=== PATIENT | female | born 1945 | race Caucasian/White ===

== ENCOUNTER 2016-11-24 17:31 | Inpatient (IN) | payer MEDICARE ==
[2016-11-24] MEDS ORDERED: Meclizine TAB* 12.5 MG PO ONE (18:51)
[2016-11-24] MEDS ORDERED: Ondansetron INJ* 2 MG/ML VIAL IV ONE ×2 (18:51→20:53)
[2016-11-24] MEDS ORDERED: NS 0.9% 1000 ML* 1,000 ML IV ONE (18:51)
[2016-11-24 19:01] LABS: Hematocrit 40 % (35-47); Hemoglobin 13.4 g/dl (12.0-16.0); Mean Corpuscular HGB Conc 34 g/dl (31-36); Mean Corpuscular Hemoglobin 31 pg (27-31); Mean Corpuscular Volume 92 fL (80-97); Mean Platelet Volume 7 um3 (7.4-10.4); Red Blood Count 4.34 10^6/ul (4.0-5.4); Red Cell Distribution Width 14 % (10.5-15); White Blood Count 8.1 10^3/ul (3.5-10.8)
[2016-11-24 19:12] LABS: Albumin 3.8 g/dL (3.2-5.2); BUN/Creatinine Ratio 19.7 (8-20); C Reactive Protein 3.99 mg/L (< 5.00); Calcium 9.1 mg/dL (8.6-10.3); EGFR African American 113.9 (>60); EGFR Non-African American 88.5 (>60); Globulin 3.2 g/dL (2-4); Potassium 3.9 mmol/L (3.5-5.0); Total Bilirubin 0.4 mg/dL (0.2-1.0)
[2016-11-24 19:17] LABS: Urine Bacteria Absent (Absent); Urine Bilirubin Negative (Negative); Urine Glucose Negative (Negative); Urine Nitrite Negative (Negative)
[2016-11-24 19:22] LABS: TSH (Thyroid Stimulating Horm) 3.06 mcIU/mL (0.34-5.60)
--- NOTE | 2016-11-24 20:13 | RAD ---
INDICATION: Dizziness and weakness COMPARISON: None. TECHNIQUE: Contiguous axial sections of the brain were obtained from the skull base to the vertex without contrast. FINDINGS: The ventricles, cisterns and sulci exhibit mild symmetric involutional changes. There is mild periventricular and subcortical white matter hypoattenuation compatible with chronic microvascular disease. At the left cerebellum there is a 4 cm low-density lesion. There is no evidence for intracranial hemorrhage. There is mass effect on the fourth ventricle as well as a small amount of cerebellar tonsillar herniation 6 mm below the level of the foramen magnum (sagittal image 17 of 30). No significant focal osseous abnormality is present. The visualized portion of the paranasal sinuses and mastoid air cells appear clear. IMPRESSION: 1. In the left cerebellum there is a 4 cm low-density mass exerting mass effect on the fourth ventricle and causing a small degree of cerebellar tonsil herniation below the level of the foramen magnum. Further characterization with MRI with and without contrast is advised. 2. Additional age-appropriate and chronic findings as described in the body of the report.
[2016-11-24] MEDS ORDERED: HYDROmorphone* 1 MG/ML 1 ML SYR IV ONE (20:53)
--- NOTE | 2016-11-24 21:14 | ED ---
Chaim Chaudhari Janilya, scribed for Bhupendra Smith MD on 11/24/16 at 1847 . Complex/Multi-Sys Presentation - HPI Summary HPI Summary: A 71 y/o female came in to [facility] presenting w/ a gradual onset of constant weakness and dizziness that started Wednesday, November 23, 2016 at approximately noon. Pt states she has "vertigo even at rest". Pt states due to the severity of the weakness in both lower extremities, pt cannot walk. There is also weakness in both upper extremities as well as tingling sensations in all extremities. Pt states she also has nausea and a sharp WREN localized diffusely. Pt states she has baseline visual anomalies. Pt denies vomiting. - History Of Current Complaint Chief Complaint: EDDizziness Time Seen by Provider: 11/24/16 18:11 Hx Obtained From: Patient Onset/Duration: Gradual Onset, Lasting Days, Still Present Timing: Constant Severity Currently: Moderate Severity Initially: Moderate Character: Sharp - Allergies/Home Medications Allergies/Adverse Reactions: Allergies Allergy/AdvReac Type Severity Reaction Status Date / Time No Known Allergies Allergy Verified 09/28/15 08:12 PMH/Surg Hx/FS Hx/Imm Hx Previously Healthy: Yes Endocrine/Hematology History: Denies: Hx Diabetes, Hx Thyroid Disease Cardiovascular History: Denies: Hx Hypertension Respiratory History: Denies: Hx Asthma, Hx Chronic Obstructive Pulmonary Disease (COPD) GI History: Denies: Hx Ulcer Infectious Disease History: No Infectious Disease History: Denies: Hx Hepatitis, Hx Human Immunodeficiency Virus (HIV), Traveled Outside the [place] in Last 30 Days - Family History Known Family History: Positive: None - Social History Alcohol Use: None Substance Use Type: Reports: None Smoking Status (MU): Heavy Every Day Tobacco Smoker Amount Used/How Often: PPD Review of Systems Eyes: Other - baseline visual anomalies Positive: Nausea. Negative: Vomiting Neurological: Other - vertigo Positive: Headache, Weakness, Paresthesia - of all extremities All Other Systems Reviewed And Are Negative: Yes Physical Exam Triage Information Reviewed: Yes Vital Signs On Initial Exam: Initial Vitals Temp Pulse Resp BP Pulse Ox 98.2 F 70 16 119/58 96 11/24/16 17:58 11/24/16 17:58 11/24/16 17:58 11/24/16 17:58 11/24/16 17:58 Vital Signs Reviewed: Yes Appearance: Positive: Well-Appearing, No Pain Distress Skin: Positive: Warm, Skin Color Reflects Adequate Perfusion, Dry Head/Face: Positive: Normal Head/Face Inspection Eyes: Positive: Normal ENT: Positive: Normal ENT inspection Neck: Positive: Supple, Nontender Respiratory/Lung Sounds: Positive: Clear to Auscultation, Breath Sounds Present Cardiovascular: Positive: RRR Abdomen Description: Positive: Nontender, Soft Bowel Sounds: Positive: Present Musculoskeletal: Positive: Normal Neurological: Positive: Other - Bilaterally horizontal nystagmus, fatigues Psychiatric: Positive: Affect/Mood Appropriate - Anaya Coma Scale Coma Scale Total: 15 Diagnostics - Vital Signs Vital Signs Temp Pulse Resp BP Pulse Ox 11/24/16 18:08 16 11/24/16 17:58 98.2 F 70 16 119/58 96 - Laboratory Lab Results: Lab Results 11/24/16 11/24/16 11/24/16 Range/Units 18:15 18:15 18:15 WBC 8.1 (3.5-10.8) 10^3/ul RBC 4.34 (4.0-5.4) 10^6/ul Hgb 13.4 (12.0-16.0) g/dl Hct 40 (35-47) % MCV 92 (80-97) fL MCH 31 (27-31) pg MCHC 34 (31-36) g/dl RDW 14 (10.5-15) % Plt Count 286 (150-450) 10^3/ul MPV 7 L (7.4-10.4) um3 Neut % (Auto) 65.4 (38-83) % Lymph % (Auto) 26.5 (25-47) % [place] % (Auto) 7.1 (1-9) % Eos % (Auto) 0.3 (0-6) % Baso % (Auto) 0.7 (0-2) % Absolute Neuts (auto) 5.3 (1.5-7.7) 10^3/ul Absolute Lymphs (auto) 2.2 (1.0-4.8) 10^3/ul Absolute Monos (auto) 0.6 (0-0.8) 10^3/ul Absolute Eos (auto) 0 (0-0.6) 10^3/ul Absolute Basos (auto) 0.1 (0-0.2) 10^3/ul Absolute Nucleated RBC 0.01 10^3/ul Nucleated RBC % 0.1 INR (Anticoag Therapy) (0.89-1.11) Sodium 125 L (133-145) mmol/L Potassium 3.9 (3.5-5.0) mmol/L Chloride 97 L (101-111) mmol/L Carbon Dioxide 21 L (22-32) mmol/L Anion Gap 7 (2-11) mmol/L BUN 13 (6-24) mg/dL Creatinine 0.66 (0.51-0.95) mg/dL Est GFR ( Amer) 113.9 (>60) Est GFR (Non-Af Amer) 88.5 (>60) BUN/Creatinine Ratio 19.7 (8-20) Glucose 105 H (70-100) mg/dL Lactic Acid 0.9 (0.5-2.0) mmol/L Calcium 9.1 (8.6-10.3) mg/dL Magnesium 2.0 (1.9-2.7) mg/dL Total Bilirubin 0.40 (0.2-1.0) mg/dL AST 14 (13-39) U/L ALT 9 (7-52) U/L Alkaline Phosphatase 66 (34-104) U/L Troponin I 0.00 (<0.04) ng/mL C-Reactive Protein 3.99 (< 5.00) mg/L Total Protein 7.0 (6.4-8.9) g/dL Albumin 3.8 (3.2-5.2) g/dL Globulin 3.2 (2-4) g/dL Albumin/Globulin Ratio 1.2 (1-3) TSH 3.06 (0.34-5.60) mcIU/mL Urine Color Urine Appearance Urine pH (5-9) Ur Specific [place] (1.010-1.030) Urine Protein (Negative) Urine Ketones (Negative) Urine Blood (Negative) Urine Nitrate (Negative) Urine Bilirubin (Negative) Urine Urobilinogen (Negative) Ur Leukocyte Esterase (Negative) Urine WBC (Auto) (Absent) Urine RBC (Auto) (Absent) Ur Squamous Epith Cells (Absent) Urine Bacteria (Absent) Urine Glucose (Negative) 11/24/16 11/24/16 Range/Units 18:15 19:01 WBC (3.5-10.8) 10^3/ul RBC (4.0-5.4) 10^6/ul Hgb (12.0-16.0) g/dl Hct (35-47) % MCV (80-97) fL MCH (27-31) pg MCHC (31-36) g/dl RDW (10.5-15) % Plt Count (150-450) 10^3/ul MPV (7.4-10.4) um3 Neut % (Auto) (38-83) % Lymph % (Auto) (25-47) % [place] % (Auto) (1-9) % Eos % (Auto) (0-6) % Baso % (Auto) (0-2) % Absolute Neuts (auto) (1.5-7.7) 10^3/ul Absolute Lymphs (auto) (1.0-4.8) 10^3/ul Absolute Monos (auto) (0-0.8) 10^3/ul Absolute Eos (auto) (0-0.6) 10^3/ul Absolute Basos (auto) (0-0.2) 10^3/ul Absolute Nucleated RBC 10^3/ul Nucleated RBC % INR (Anticoag Therapy) 1.00 (0.89-1.11) Sodium (133-145) mmol/L Potassium (3.5-5.0) mmol/L Chloride (101-111) mmol/L Carbon Dioxide (22-32) mmol/L Anion Gap (2-11) mmol/L BUN (6-24) mg/dL Creatinine (0.51-0.95) mg/dL Est GFR ( Amer) (>60) Est GFR (Non-Af Amer) (>60) BUN/Creatinine Ratio (8-20) Glucose (70-100) mg/dL Lactic Acid (0.5-2.0) mmol/L Calcium (8.6-10.3) mg/dL Magnesium (1.9-2.7) mg/dL Total Bilirubin (0.2-1.0) mg/dL AST (13-39) U/L ALT (7-52) U/L Alkaline Phosphatase (34-104) U/L Troponin I (<0.04) ng/mL C-Reactive Protein (< 5.00) mg/L Total Protein (6.4-8.9) g/dL Albumin (3.2-5.2) g/dL Globulin (2-4) g/dL Albumin/Globulin Ratio (1-3) TSH (0.34-5.60) mcIU/mL Urine Color Yellow Urine Appearance Cloudy Urine pH 5.0 (5-9) Ur Specific [place] 1.015 (1.010-1.030) Urine Protein Negative (Negative) Urine Ketones 1+ H (Negative) Urine Blood 1+ H (Negative) Urine Nitrate Negative (Negative) Urine Bilirubin Negative (Negative) Urine Urobilinogen Negative (Negative) Ur Leukocyte Esterase Negative (Negative) Urine WBC (Auto) Trace(0-5/hpf) (Absent) Urine RBC (Auto) Trace(0-2/hpf) (Absent) Ur Squamous Epith Cells Present H (Absent) Urine Bacteria Absent (Absent) Urine Glucose Negative (Negative) Result Diagrams: 11/24/16 18:15 11/24/16 18:15 Lab Statement: Any lab studies that have been ordered have been reviewed, and results considered in the medical decision making process. - CT brain CT Interpretation: Positive (See Comments) - IMPRESSION: 1. In the left cerebellum there is a 4 cm low-density mass exerting mass effect on the fourth ventricle and causing a small degree of cerebellar tonsil herniation below the level of the foramen magnum. Further characterization with MRI with and without contrast is advised. 2. Additional age-appropriate and chronic findings as described in the body of the report. CT Interpretation Completed By: Radiologist - EKG 1808 Cardiac Rate: NL - 64 bpm EKG Rhythm: Sinus Rhythm ST Segment: Normal Complex Multi-Symp Course/Dx Course Of Treatment: Ms. Delgado was found on CT to have a large cerebellar mass causing mass effect and Dr. Hunter was contacted for admission. - Diagnoses Provider Diagnoses: Intracranial mass - Physician Notifications Discussed Care Of Patient With: Dr. Hunter (neurosurgery) at 2100: recommends admission of pt. - Critical Care Time Critical Care Time: 30-74 min Discharge - Discharge Plan Condition: Stable Disposition: ADMITTED TO [facility] Referrals: Jaxon GARCIA,Nadia White [Primary Care Provider] - The documentation as recorded by the Chaim villafana Janilya accurately reflects the service I personally performed and the decisions made by Luis edmonds Richard L, MD.
[2016-11-24] MEDS ORDERED: Dexamethasone IV* 4 MG/ML 5 ML VIAL (20 MG) IVPB ONE (22:30)
[2016-11-24] MEDS ORDERED: Ondansetron INJ* 2 MG/ML VIAL IV PRN (22:34)
--- NOTE | 2016-11-24 23:14 | HP ---
H&P (Free Text) History and Physical: History and Physical 11/24/16 HPI: This is a 71 year old female who presented to the [facility] ED this afternoon with complaint of bilateral lower extremity weakness, headache and vertigo. She is able to provide a full history. She states that she has been experiencing bilateral lower extremity weakness over the past several years, left worse than right. The weakness had been progressing more quickly over the past 6 days until yesterday around noon that she was unable to ambulate out to her car. At that time, she also began experiencing bilateral upper extremity numbness and tingling, severe headache over her entire head, nausea, dyspepsia, vertigo, loss of appetite, and loss of urge to smoke cigarettes. These symptoms prompted her to call an ambulance for transportation to the ED today. Vertigo is worse with sitting up or standing. Over the past 1.5 weeks, she has noticed changes in her vision. She usually wears readers but has not had an eye exam or been to an eye doctor in several years. She has noticed that her left eyesight has improved while the right has worsened in the past week. She also experiences aura without migraine more frequently in the past couple of weeks; now once or twice daily. She denies pain in the bilateral upper and lower extremities. She denies chest pain, difficulty breathing, cough, shortness of breath, vomiting, and hematuria. No personal history of cancer or stoke. Family history of cancer. Allergies: No known allergies Home medications: No home medications. Past medical history: 1. No current medical conditions. Social History: She is a cigarette smoker of 1ppd. No alcohol use. Family history: 1. History of lung and pancreatic cancer. ROS: Full ROS completed. All pertinent findings stated in HPI, all others negative. Physical exam: Vital Signs: Temp Pulse Resp BP Pulse Ox 98.2 F 67 12 112/51 97 11/24/16 17:58 11/24/16 18:30 11/24/16 21:27 11/24/16 18:30 11/24/16 18:30 General: Alert and oriented. Laying comfortably in bed. No distress. HEENT: Head is normocephalic and atraumatic. PERRL, EOMI, sclerae anicteric. Gross hearing intact. Nares patent. Moist mucus membranes. Neck: Supple, symmetric. Nontender. CV: Regular rate and rhythm. Radial pulses 2+ and equal. Pedal pulses palpable. Lungs: Breathing is nonlabored. Lungs are clear to auscultation. Abdomen: NABS. Soft, nontender and nondistended. Neuro: Speech is clear and coherent. CN II-XII intact. Bilateral upper extremity strength 5/5 throughout. Bilateral lower extremity strength 5/5 throughout. DTR intact throughout. Negative Reilly's, no ankle clonus. Finger to nose coordination intact. Sensation to light touch intact. Labs: 11/24/16 11/24/16 11/24/16 18:15 18:15 18:15 WBC 8.1 RBC 4.34 Hgb 13.4 Hct 40 MCV 92 MCH 31 MCHC 34 RDW 14 Plt Count 286 MPV 7 L Neut % (Auto) 65.4 Lymph % (Auto) 26.5 [place] % (Auto) 7.1 Eos % (Auto) 0.3 Baso % (Auto) 0.7 Absolute Neuts (auto) 5.3 Absolute Lymphs (auto) 2.2 Absolute Monos (auto) 0.6 Absolute Eos (auto) 0 Absolute Basos (auto) 0.1 Absolute Nucleated RBC 0.01 Nucleated RBC % 0.1 INR (Anticoag Therapy) Sodium 125 L Potassium 3.9 Chloride 97 L Carbon Dioxide 21 L Anion Gap 7 BUN 13 Creatinine 0.66 Est GFR ( Amer) 113.9 Est GFR (Non-Af Amer) 88.5 BUN/Creatinine Ratio 19.7 Glucose 105 H Lactic Acid 0.9 Calcium 9.1 Magnesium 2.0 Total Bilirubin 0.40 AST 14 ALT 9 Alkaline Phosphatase 66 Troponin I 0.00 C-Reactive Protein 3.99 Total Protein 7.0 Albumin 3.8 Globulin 3.2 Albumin/Globulin Ratio 1.2 TSH 3.06 Urine Color Urine Appearance Urine pH Ur Specific [place] Urine Protein Urine Ketones Urine Blood Urine Nitrate Urine Bilirubin Urine Urobilinogen Ur Leukocyte Esterase Urine WBC (Auto) Urine RBC (Auto) Ur Squamous Epith Cells Urine Bacteria Urine Glucose 11/24/16 11/24/16 18:15 19:01 WBC RBC Hgb Hct MCV MCH MCHC RDW Plt Count MPV Neut % (Auto) Lymph % (Auto) [place] % (Auto) Eos % (Auto) Baso % (Auto) Absolute Neuts (auto) Absolute Lymphs (auto) Absolute Monos (auto) Absolute Eos (auto) Absolute Basos (auto) Absolute Nucleated RBC Nucleated RBC % INR (Anticoag Therapy) 1.00 Sodium Potassium Chloride Carbon Dioxide Anion Gap BUN Creatinine Est GFR ( Amer) Est GFR (Non-Af Amer) BUN/Creatinine Ratio Glucose Lactic Acid Calcium Magnesium Total Bilirubin AST ALT Alkaline Phosphatase Troponin I C-Reactive Protein Total Protein Albumin Globulin Albumin/Globulin Ratio TSH Urine Color Yellow Urine Appearance Cloudy Urine pH 5.0 Ur Specific [place] 1.015 Urine Protein Negative Urine Ketones 1+ H Urine Blood 1+ H Urine Nitrate Negative Urine Bilirubin Negative Urine Urobilinogen Negative Ur Leukocyte Esterase Negative Urine WBC (Auto) Trace(0-5/hpf) Urine RBC (Auto) Trace(0-2/hpf) Ur Squamous Epith Cells Present H Urine Bacteria Absent Urine Glucose Negative Imagin. CT brain on 11/24/16 shows left cerebellar mass. Assessment: This is a 71 year old female with no past medical history who presented with weakness, dizziness and headache. She is neurologically stable. CT obtained in ED shows left cerebellar mass. Further work up is necessary to determine treatment. Plan: 1. Admit to ICU for monitoring. 2. MRI brain with and without contrast in morning. 3. Decadron 10mg IV loading dose. 4mg IV every 6 hours maintenance. 4. Neuro checks.
[2016-11-25] MEDS: HYDROcodone/ACETAMIN 5-325 MG* 1 TAB PO PRN ×3 (00:59→23:00)
[2016-11-25] MEDS ORDERED: Labetalol IV* 5 MG/ML 20 ML VIAL IV PUSH PRN (01:05)
[2016-11-25] MEDS: Nicotine PATCH 21 MG/24 HR* PATCH TRANSDERM SCH (03:12)
[2016-11-25] MEDS ORDERED: Dexamethasone IV* 4 MG in NS 0.9% 50 ML* 50 ML IVPB SCH (05:00)
[2016-11-25] MEDS: Dexamethasone IV* 4 MG/ML 1 ML (4 MG) IV SLOW PU SCH ×4 (05:23→22:52)
[2016-11-25] MEDS ORDERED: Gadoteridol* (CONTRAST) 279.3 MG/ML 10 ML IV ONE (12:39)
--- NOTE | 2016-11-25 14:11 | RAD ---
INDICATION: 1 week of gradually increasing weakness, dizziness and nausea. COMPARISON: CT of the brain November 24, 2016 that shows a 4 cm fluid density mass in the left cerebellum. TECHNIQUE: Sagittal T1, axial T1, T2, susceptibility, FLAIR and diffusion-weighted images were obtained. In addition, axial, sagittal and coronal T1-weighted images were obtained following intravenous injection of 14 mL of ProHance contrast. FINDINGS: Within the left lobe of the cerebellum there is a T2 bright well circumscribed mass that measures approximately 4 x 4.3 cm in the axial plane and 2.9 cm in the cephalocaudal projection. There is a small amount of increased T2 signal along the medial margin of this mass. This mass is dark on T1-weighted imaging and exhibits mostly peripheral enhancement after contrast administration. On diffusion-weighted imaging there is low signal within the mass. There is visible mass effect on the more medial cerebellum as well as compression exerted on the fourth ventricle and cerebral aqueduct. The remaining ventricles are symmetric and appropriate for the age of the patient. On the T2-weighted images there are multifocal subcentimeter T2 bright foci in the periventricular and white matter tracts, most of which have no corresponding findings on the contrast-enhanced images and are most consistent therefore with chronic microvascular disease. In the white matter tracts of the left frontal lobe (image 21 of 30) there is a 2 mm enhancing focus. Remaining portions of the brain are morphologically normal with preservation of the clement-white matter differentiation. The visualized portion of the paranasal sinuses and mastoid air cells appear clear. IMPRESSION: In the left lobe of the cerebellum there is an intra-axial peripherally enhancing cystic mass with a maximum axial dimension of 4.3 cm exerting mass effect on the left cerebellum and fourth ventricle. 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 There is an enhancing 2 mm focus in the white matter tracts of the left frontal lobe indicating these lesions are metastases. Nonneoplastic etiologies could include abscess, hematoma or tumefactive multiple sclerosis, but these etiologies are considered less likely based on imaging alone.
[2016-11-25] MEDS ORDERED: Mouth Piece, Nicotine* 1 EACH CARTRIDGE INH PRN (15:36)
--- NOTE | 2016-11-25 15:36 | PN ---
Progress Note - Progress Note SOAP: Subjective: [This is a 71 year old female who presented to the [facility] with difficulty walking , dizziness and weakness of the bilateral lower extremities significantly worsening in the past 1-[address] obtained showed a left cerebellar mass. Currently she is feeling improved. She continues to experience vertigo when she stands or walks but feels well while sitting up in bed. Headache is controlled with PO [place]. She denies nausea, vomiting. Appetite is improved. ] Objective: [ Vital Signs: Temp Pulse Resp BP Pulse Ox 99.4 F 83 16 115/91 94 11/25/16 12:00 11/25/16 15:00 11/25/16 15:00 11/25/16 15:00 11/25/16 15:00 General: Alert and oriented. No distress. Neuro: Motor and sensory intact. Coordination intact. Extremities: Full ROM.] Assessment: [71 year old female with cerebellar mass as evidenced on CT brain and MRI brain w/wo. Stable.] Plan: [1. Plan for surgical resection of mass on 11/27/16. 2. Continue pain management of WREN. 3. Continue neuro checks.]
[2016-11-25] MEDS: Nicotine Inhaler* 10 MG AMP INH PRN (16:17)
[2016-11-25 16:43] LABS: BUN/Creatinine Ratio 18.1 (8-20); Calcium 9.2 mg/dL (8.6-10.3); EGFR Non-African American 80.1 (>60)
--- NOTE | 2016-11-25 17:00 | RAD ---
INDICATION: Preoperative chest x-ray in a patient with a left cerebellar mass. COMPARISON: None TECHNIQUE: PA and lateral views of the chest were obtained. FINDINGS: The heart and mediastinum are normal in size and contour. Overlying the right lung there is a 4.5 cm mass. In the same vicinity there are additional 2 and 2.3 cm masses. Lateral view chest x-ray localizing these masses anteriorly most likely in the right middle lobe. Visualized bones are normal for the patient's age. There is no radiographic evidence of free air beneath the diaphragm IMPRESSION: MULTIPLE PULMONARY MASSES LOCALIZED TO THE RIGHT MIDDLE LOBE DESCRIBED ABOVE. FURTHER CHARACTERIZATION WITH CONTRAST-ENHANCED CT OF THE CHEST IS ADVISED.
[2016-11-25] MEDS ORDERED: Sodium Chloride 3% HYPERTONIC* 250 ML IVPB ONE (19:00)
[2016-11-25] MEDS: Nicotine Patch Removal NOTE FOLLOW UP SCH (20:26)
[2016-11-26] MEDS: HYDROcodone/ACETAMIN 5-325 MG* 1 TAB PO PRN ×3 (04:17→23:49)
[2016-11-26] MEDS: Dexamethasone IV* 4 MG/ML 1 ML (4 MG) IV SLOW PU SCH ×4 (04:26→22:31)
[2016-11-26 06:33] LABS: BUN/Creatinine Ratio 18.3 (8-20); Calcium 8.7 mg/dL (8.6-10.3); EGFR African American 127.1 (>60); EGFR Non-African American 98.8 (>60); Potassium 3.9 mmol/L (3.5-5.0)
[2016-11-26] MEDS: Nicotine PATCH 21 MG/24 HR* PATCH TRANSDERM SCH (08:20)
[2016-11-26] MEDS: Nicotine Inhaler* 10 MG AMP INH PRN ×3 (13:09→22:31)
--- NOTE | 2016-11-26 14:03 | PN ---
Progress Note - Progress Note SOAP: Subjective: []Feels better post Decadron Had MRI yesterday which was available for review Gives history of several years of progressive gait issues Objective: []Neuro intact except for dysmetria LUE CN 2-12 intact Assessment: [] MRI shows large enhancing left cerebellar mass with 4th ventricular compression CXR shows multiple masses in right lung Plan: []She has a large posterior fossa lesion which in the setting of her CXR likely represents metastaic disease. The findings on her study were reviewed.A proposed procedure of left posterior fossa craniectomy with tumor removal was discussed in detail. The risks of surgery to include bleeding, infection, numbness, weakness, CSF leak were all discussed. Surgery is scheduled for 11/27
[2016-11-26] MEDS: Nicotine Patch Removal NOTE FOLLOW UP SCH (22:32)
[2016-11-26] MEDS: LORazepam TAB(*) 1 MG PO PRN ×2 (22:38→23:39)
[2016-11-26] MEDS: Zolpidem TAB* 10 MG PO PRN ×2 (22:38→23:48)
[2016-11-27] MEDS: Dexamethasone IV* 4 MG/ML 1 ML (4 MG) IV SLOW PU SCH ×4 (05:25→23:36)
[2016-11-27] MEDS ORDERED: Buffered Lidocaine 1% SYR 3ML* 3 ML/SYR SYRINGE INTRADERM ONE (06:00)
[2016-11-27] MEDS ORDERED: Famotidine IV* 10 MG/ML 2 ML (20 mg) IV ONE (06:00)
[2016-11-27] MEDS ORDERED: Lidocaine 2% PF * 5 ML VIAL ONE (07:12)
[2016-11-27] MEDS ORDERED: Propofol* 10 MG/ML 20 ML BTL IV PUSH ONE ×2 (07:12→09:23)
[2016-11-27] MEDS ORDERED: Rocuronium* 10 MG/ML VIAL ONE ×2 (07:13→09:47)
[2016-11-27] MEDS ORDERED: fentaNYL* 50 MCG/ML 2 ML VIAL (100 MCG VIAL) ONE ×2 (07:13→13:09)
[2016-11-27] MEDS ORDERED: Midazolam* 1 MG/ML 5 ML VIAL (5 MG) ONE (07:13)
[2016-11-27] MEDS ORDERED: Thrombin 5,000 UNITS* 1 APPLIC KIT - topical use - TOPICAL ONE (07:17)
[2016-11-27] MEDS ORDERED: Lidocain 1% EPI 1:100,000 * 30 ML MDV ONE (07:17)
[2016-11-27] MEDS ORDERED: Mannitol 25% (12.5 GM) 50 ML* 12.5 GM/50 ML VIAL ONE (07:17)
[2016-11-27] MEDS ORDERED: ceFAZolin 2 GM PREMIX(*) 2 GM/50 ML BAG IVPB ONE (07:51)
[2016-11-27] MEDS: Nicotine PATCH 21 MG/24 HR* PATCH TRANSDERM SCH (09:00)
[2016-11-27] MEDS ORDERED: Remifentanil* 2 MG VIAL ONE (09:00)
[2016-11-27 09:36] LABS: PCO2 Arterial 40 mmHg (35-45)
[2016-11-27] MEDS ORDERED: Ondansetron INJ* 2 MG/ML VIAL ONE (11:06)
[2016-11-27] MEDS ORDERED: Dexamethasone IV* 4 MG/ML 1 ML (4 MG) ONE (11:32)
[2016-11-27] MEDS ORDERED: Glycopyrrolate IV* 0.2 MG/ML 1 ML VIAL ONE (11:43)
[2016-11-27] MEDS ORDERED: Neostigmine Methylsulfate* 2 MG/2 ML SYRINGE ONE (11:43)
[2016-11-27] MEDS ORDERED: hydrALAZINE IV* 20 MG/ML VIAL IV SLOW PU PRN ×2 (12:04→12:47)
[2016-11-27] MEDS ORDERED: Labetalol IV* 5 MG/ML 20 ML VIAL IV PUSH PRN (12:10)
[2016-11-27] MEDS ORDERED: Morphine INJ* 2 MG/ML 1 ML SYRINGE IV PRN (12:18)
[2016-11-27] MEDS ORDERED: PROCHLORPERAZINE INJ 5 MG/ML 2 ML VIAL IV PRN (12:18)
[2016-11-27] MEDS ORDERED: HYDROcodone/ACETAMIN 5-325 MG* 1 TAB PO PRN (12:18)
[2016-11-27] MEDS: fentaNYL* 50 MCG/ML 2 ML VIAL (100 MCG VIAL) IV PRN ×2 (13:10→13:30)
[2016-11-27] MEDS: Morphine INJ* 4 MG/ML 1 ML SYRINGE IV PRN ×2 (14:15→18:22)
[2016-11-27] MEDS: LORazepam TAB(*) 1 MG PO PRN ×2 (16:09→22:15)
[2016-11-27] MEDS: HYDROcodone/ACETAMIN 5-325 MG* 1 TAB PO PRN ×2 (16:12→22:15)
[2016-11-27] MEDS: Nicotine Patch Removal NOTE FOLLOW UP SCH (21:01)
[2016-11-28] MEDS: Morphine INJ* 4 MG/ML 1 ML SYRINGE IV PRN ×3 (02:23→20:00)
[2016-11-28] MEDS: HYDROcodone/ACETAMIN 5-325 MG* 1 TAB PO PRN ×4 (03:38→22:03)
[2016-11-28] MEDS: LORazepam TAB(*) 1 MG PO PRN ×2 (04:23→22:03)
[2016-11-28] MEDS: Dexamethasone IV* 4 MG/ML 1 ML (4 MG) IV SLOW PU SCH ×4 (04:52→22:02)
[2016-11-28 05:18] LABS: Calcium 8.6 mg/dL (8.6-10.3); EGFR African American 122.4 (>60); EGFR Non-African American 95.2 (>60); Potassium 4.2 mmol/L (3.5-5.0)
[2016-11-28 05:20] LABS: Hematocrit 34 % (35-47); Hemoglobin 11.2 g/dl (12.0-16.0); Mean Corpuscular HGB Conc 33 g/dl (31-36); Mean Corpuscular Hemoglobin 30 pg (27-31); Mean Corpuscular Volume 92 fL (80-97); Mean Platelet Volume 7 um3 (7.4-10.4); Red Blood Count 3.73 10^6/ul (4.0-5.4); Red Cell Distribution Width 15 % (10.5-15); White Blood Count 15.9 10^3/ul (3.5-10.8)
--- NOTE | 2016-11-28 07:54 | PN ---
Progress Note - Progress Note SOAP: Subjective: []POD # 1 Doing well Some complaints of headache Remains anxious Objective: []Drain working well Neuro intact Finger to nose good bilaterally F/U CT shows no bleed,post op changes Assessment: []Stable post op Plan: []D/C A line Advance diet Will have Dr. Ch evaluate in AM
--- NOTE | 2016-11-28 08:18 | RAD ---
INDICATION: Status post craniotomy for left cerebellar mass COMPARISON: Preoperative CT of the brain dated November 24, 2016 TECHNIQUE: Contiguous axial sections of the brain were obtained from the skull base to the vertex without contrast. FINDINGS: The patient is status post craniectomy of the left occipital bone as well as craniotomy of the left frontal bone for the purpose of placement of a ventricular drain. The 4 cm mass in the left cerebellum appears to have been surgically removed. There is a mostly low attenuating space adjacent to the left cerebellum measuring 2.3 x 2.9 cm in the axial plane. A ventricular shunt is seen terminating with the tip in the left lateral ventricle. Multiple foci are gas are seen in the extra-axial space adjacent to the bilateral frontal lobes, the falx cerebra I an external to the left cerebellum consistent with recent surgery. The remaining portions of the brain are grossly normal in appearance with preservation of the clement-white matter differentiation. There is no large extra-axial hemorrhage collection. IMPRESSION: Expected postoperative findings status post excision of left cerebellar mass and placement of a left frontal bone ventricular shunt.
[2016-11-28] MEDS: Nicotine PATCH 21 MG/24 HR* PATCH TRANSDERM SCH (13:45)
[2016-11-28] MEDS: Nicotine Inhaler* 10 MG AMP INH PRN (21:58)
[2016-11-28] MEDS: Nicotine Patch Removal NOTE FOLLOW UP SCH (22:00)
[2016-11-29] MEDS: Zolpidem TAB* 10 MG PO PRN (00:08)
[2016-11-29] MEDS: Morphine INJ* 4 MG/ML 1 ML SYRINGE IV PRN (00:49)
[2016-11-29] MEDS: Dexamethasone IV* 4 MG/ML 1 ML (4 MG) IV SLOW PU SCH ×4 (05:07→23:00)
[2016-11-29] MEDS: HYDROcodone/ACETAMIN 5-325 MG* 1 TAB PO PRN ×4 (05:12→20:02)
[2016-11-29] MEDS: Nicotine PATCH 21 MG/24 HR* PATCH TRANSDERM SCH (08:55)
[2016-11-29] MEDS ORDERED: Morphine INJ* 2 MG/ML 1 ML SYRINGE IV PRN (09:46)
[2016-11-29] MEDS ORDERED: Iohexol 300* (CONTRAST) 10 ML SDV IV ONE (11:52)
--- NOTE | 2016-11-29 12:27 | PN ---
Progress Note - Progress Note SOAP: Subjective: []POD # 2 Doing well No complaints of headache Did not want to be evaluated by Dr. Ch this am Objective: []Drain working well Neuro intact Assessment: []Doing well post op Plan: []D/C [place] Get CT scans per Dr. Ch Venricular drain removed
--- NOTE | 2016-11-29 14:57 | RAD ---
INDICATION: Intracranial and lung masses. Metastatic evaluation. COMPARISON: MRI brain November 25, 2016; chest x-ray November 25, 2016 TECHNIQUE: Axial source images were obtained from the thoracic inlet to the symphysis pubis following administration of oral and intravenous contrast. 87 mL Omnipaque 300 was utilized. Coronal and sagittal reconstructed images were acquired. CHEST FINDINGS: Neck/thyroid: The right thyroid lobe appears mildly heterogeneous and can be evaluated with follow-up sonography if indicated. Chest wall: There are no acute abnormalities of the bony thorax or chest wall. There is no supraclavicular, infraclavicular, or axillary lymphadenopathy. Lungs : There are numerous, bilateral, lung masses. These are most numerous in right middle lobe which also contain the dominant lesions. The largest lesion measures 4.5 x 3.8 cm and the second largest lesion 2.5 x 2.3 cm. There is airspace disease in the dependent portion of both lung bases which is likely related to atelectasis. The pulmonary interstitium appears normal. There are no endobronchial lesions. Cardiomediastinal structures: The heart is normal in size. There is no pericardial effusion. There is no evidence of aortic aneurysm or dissection. The pulmonary vessels appear normal. There is extensive mediastinal adenopathy there is a necrotic appearing subcarinal mass measuring 4.6 x 2.7 cm. A right hilar mass measures 3.1 x 3.0 cm. There is a pretracheal mass measuring 1.6 x 2.1 cm. A right peritracheal mass measures 2.2 x 1.8 cm. There are additional smaller lymph nodes. All of the other lymph nodes also appear mildly necrotic. The esophagus appears normal. Pleura : There are small bilateral pleural effusions. ABDOMINAL/PELVIC FINDINGS: Liver: The liver is normal in size. There are no masses. There is no ductal dilatation. Gallbladder: There are no calcified gallstones. There is no evidence of wall thickening or pericholecystic fluid. Spleen: The spleen is normal in size. There is a nonspecific 4 mm splenic hypodensity. Pancreas: There is no evidence of pancreatic mass or ductal dilatation. Adrenal glands: There is no evidence of adrenal mass. Kidneys: The kidneys are normal in size and position. There are prompt nephrograms and there is prompt excretion bilaterally. There are no renal parenchymal masses. There is no evidence of nephrolithiasis. Adenopathy: There is no evidence of adenopathy by size criteria. Fluid collections: There are no free or localized fluid collections. Vessels:There are atherosclerotic changes of the aorta. There is no focal aneurysm. The IVC is unremarkable GI tract: There are no acute CT bowel findings. There is no obstruction. The stomach and small bowel appear normal. The lower GI tract is normal. The cecum, ileocecal valve, and terminal ileum appear normal. The appendix is visualized and appear normal. Pelvic organs: The uterus and adnexa appear normal Bladder: There are no bladder masses. There is a Delarosa catheter. There is air within bladder presumably related to instrumentation. Abdominal and pelvic soft tissues: The extraperitoneal abdominal and pelvic soft tissues appear normal.. Osseous structures: There are no acute osseous findings. IMPRESSION: 1. Multiple, bilateral, pulmonary parenchymal masses measuring up to 4.5 cm. 2. Extensive mediastinal lymphadenopathy. 3. [place] dependent atelectasis. 4. Small bilateral pleural effusions. 5. Tiny, nonspecific, splenic hypodensity.
[2016-11-29] MEDS: Acetaminophen TAB* 325 MG PO PRN (20:01)
[2016-11-29] MEDS: Nicotine Patch Removal NOTE FOLLOW UP SCH (21:26)
[2016-11-30] MEDS: Zolpidem TAB* 10 MG PO PRN (01:22)
[2016-11-30] MEDS: Acetaminophen TAB* 325 MG PO PRN ×2 (01:22→22:37)
[2016-11-30] MEDS: HYDROcodone/ACETAMIN 5-325 MG* 1 TAB PO PRN ×5 (01:27→22:39)
[2016-11-30] MEDS: Dexamethasone IV* 4 MG/ML 1 ML (4 MG) IV SLOW PU SCH (05:35)
[2016-11-30] MEDS: Nicotine Inhaler* 10 MG AMP INH PRN ×2 (06:28→08:34)
[2016-11-30] MEDS: Nicotine PATCH 21 MG/24 HR* PATCH TRANSDERM SCH (08:34)
[2016-11-30] MEDS: Dexamethasone TAB* 1 MG PO SCH ×2 (08:49→20:59)
--- NOTE | 2016-11-30 08:50 | PN ---
Progress Note - Progress Note SOAP: Subjective: []POD# 3 Continues to improve Complaining of dizziness No headache Objective: []Dressing OK Neuro intact Assessment: []Stable post op course Plan: [] Transfer to floor Decadron changed to PO Will follow up with Dr. Ch as out patient
[2016-11-30] MEDS: Magnesium Hydroxide LIQ* 30 ML UDC PO PRN (11:02)
[2016-11-30] MEDS: LORazepam TAB(*) 1 MG PO PRN ×2 (11:02→19:57)
[2016-11-30] MEDS: Docusate CAP* 100 MG PO PRN ×2 (11:02→21:02)
[2016-11-30] MEDS: Nicotine Patch Removal NOTE FOLLOW UP SCH (21:01)
[2016-12-01] MEDS: HYDROcodone/ACETAMIN 5-325 MG* 1 TAB PO PRN ×5 (03:50→23:50)
[2016-12-01] MEDS: Acetaminophen TAB* 325 MG PO PRN ×5 (03:51→23:51)
[2016-12-01] MEDS: Nicotine PATCH 21 MG/24 HR* PATCH TRANSDERM SCH (08:05)
[2016-12-01] MEDS: Dexamethasone TAB* 1 MG PO SCH ×2 (09:07→21:16)
--- NOTE | 2016-12-01 09:53 | PN ---
Progress Note - Progress Note SOAP: Subjective: [POD #4. Dizziness and unsteadiness with standing persists. Head pain near incisions on left. Working with PT. ] Objective: [ Vital Signs: Temp Pulse Resp BP Pulse Ox 98.2 F 59 16 128/63 97 12/01/16 07:12 12/01/16 07:12 12/01/16 09:39 12/01/16 07:12 12/01/16 07:12 General: Alert and oriented. Tired. Neuro: Motor and sensory intact. Coordination finger to nose intact. Incision: Intact with sutures. Minimal drainage from inferior aspect of left posterior incision. No infection. ] Assessment: [Stable post-op. Briefly discussed results of CT with the patient and her brother.] Plan: [1. Continue pain management. 2. Continue PT. 3. Encourage good PO nutrition. ]
[2016-12-01] MEDS: Docusate CAP* 100 MG PO PRN (13:21)
[2016-12-01] MEDS: Magnesium Hydroxide LIQ* 30 ML UDC PO PRN (13:21)
[2016-12-01] MEDS: LORazepam TAB(*) 1 MG PO PRN ×2 (13:22→18:54)
[2016-12-01] MEDS: Ondansetron TAB* 4 MG PO PRN (18:55)
[2016-12-01] MEDS: Nicotine Patch Removal NOTE FOLLOW UP SCH (21:18)
[2016-12-02] MEDS: LORazepam TAB(*) 1 MG PO PRN ×3 (04:14→21:16)
[2016-12-02] MEDS: Acetaminophen TAB* 325 MG PO PRN ×5 (04:14→22:08)
[2016-12-02] MEDS: HYDROcodone/ACETAMIN 5-325 MG* 1 TAB PO PRN ×5 (04:14→22:08)
[2016-12-02] MEDS: Docusate CAP* 100 MG PO PRN (09:08)
[2016-12-02] MEDS: Ondansetron TAB* 4 MG PO PRN ×2 (09:08→17:55)
[2016-12-02] MEDS: Dexamethasone TAB* 1 MG PO SCH ×2 (09:09→21:16)
[2016-12-02] MEDS: Nicotine PATCH 21 MG/24 HR* PATCH TRANSDERM SCH (09:09)
[2016-12-02] MEDS: Nicotine Inhaler* 10 MG AMP INH PRN (09:15)
--- NOTE | 2016-12-02 10:35 | PN ---
Progress Note - Progress Note SOAP: Subjective: [S/p left posterior fossa craniectomy for cerebellar tumor resection. POD# 5. Mood improved today. Occasional dizziness, nausea and weakness with ambulation persists. Working with PT daily. Incisional left-sided head pain controlled with PO pain medication.] Objective: [ Vital Signs: Temp Pulse Resp BP Pulse Ox 97.5 F 62 18 112/78 99 12/02/16 07:16 12/02/16 07:16 12/02/16 09:09 12/02/16 07:16 12/02/16 07:16 General: Alert and oriented. No distress. Neuro: Speech is clear and coherent. Motor and sensory intact. Coordination finger to nose intact. Incision: Intact with sutures. No infection. Dressing clean and dry. ] Assessment: [Stable post-op.] Plan: [1. Continue pain management 2. Continue to encourage PO nutrition. 3. OT to evaluate patient tomorrow. 4. PT following.]
[2016-12-02] MEDS: Nicotine Patch Removal NOTE FOLLOW UP SCH (21:21)
[2016-12-03] MEDS: HYDROcodone/ACETAMIN 5-325 MG* 1 TAB PO PRN (03:20)
[2016-12-03] MEDS: Acetaminophen TAB* 325 MG PO PRN ×2 (03:21→10:29)
--- NOTE | 2016-12-03 05:08 | OP ---
DATE OF OPERATION: 11/27/16 - ROOM #337 DATE OF : 47 SURGEON: Hong Hunter MD. PAYROLL ADMINISTRATOR: CARLOS EDUARDO Anne. ANESTHESIOLOGIST: Harpal Glez MD ANESTHESIA: General. PRE-OP DIAGNOSIS: Left cerebellar tumor. POST-OP DIAGNOSIS: Left cerebellar metastatic tumor. OPERATIVE PROCEDURES: 1. Left posterior fossa craniectomy for removal of tumor with microdissection. 2. Left frontal ventricular drain placement. DESCRIPTION OF PROCEDURE: The patient was initially placed on the operating room table in the supine position and after satisfactory general anesthesia was obtained, the left frontal area was clipped, prepped, and draped in a sterile manner for left frontal kyle hole placement for a ventricular drain. A skin incision was outlined 9 cm above and 3 cm to the left of the nasion and this 3 cm curvilinear incision was infiltrated with 1% Xylocaine with epinephrine and turned down sharply to the periosteum. A single kyle hole was then placed with a power drill. The dura was opened and a ventricular catheter placed on a single pass into the ventricular system. This was tunneled posteriorly to be utilized for spinal fluid drainage during her craniectomy to follow. The patient was then placed into the right lateral decubitus position and a lazy-S shaped incision outlined over the midportion of the left posterior fossa. This incision was infiltrated with 1% Xylocaine with epinephrine after it was turned down sharply to the cervical musculature and periosteum. These were both divided and self-retraining retractors placed to facilitate exposure. A craniectomy was then performed and initially the transverse sinus was identified and additional bone taken off to ensure exposure widely laterally and inferior as preoperative x-ray studies had shown the mass extending up to the tentorium and out laterally to the wall of the posterior fossa. After the generous bony decompression was done, the ventricular drain was opened and the dura was opened in a cruciate manner and reflected out of the way with dural tack-up sutures. The operating microscope was then brought into the field and the remainder of the procedure done under microscopic guidance. Utilizing microdissection, a plane was developed between normal cerebellum and obvious abnormal tissue. Specimens of this tissue were initially sent for frozen section diagnosis with the initial frozen section diagnosis being that of cerebellar reactive tissue. 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 Utilizing primarily suction in the bipolar forceps, the interior of the tumor was decompressed and it was felt that a gross total excision of abnormal tumor tissue was accomplished. This tumor extended all the way up to the tentorium and out laterally to the wall of the posterior fossa. At the conclusion of the decompression, pieces of Surgicel were placed over the denuded cerebellar surface. The dura was then reapproximated with 4-0 Nurolon sutures to include a bovine pericardial dural graft. The fascia was then reapproximated with 2-0 and 3-0 Vicryl sutures. The skin was closed with a running locking 2-0 Prolene suture. The estimated blood loss was 200 cc and the final sponge, padding, and needle counts were correct. The patient was taken to the recovery room, extubated and in stable condition. [id number]/[facility] #: [id number] [facility] HOSPITALShanthi
[2016-12-03] MEDS ORDERED: traMADol TAB* 50 MG PO PRN (07:34)
--- NOTE | 2016-12-03 07:41 | PN ---
Progress Note - Progress Note SOAP: Subjective: [S/p posterior fossa craniectomy for cerebellar tumor resection. POD #6. Feeling well this morning. Denies headache, nausea. Ambulating with assistance of walker. PT following.] Objective: [ Vital Signs: Temp Pulse Resp BP Pulse Ox 97.9 F 57 16 97/55 97 12/03/16 03:56 12/03/16 03:56 12/03/16 05:20 12/03/16 03:56 12/03/16 03:56 General: Alert and oriented. No distress. Neuro: Motor and sensory intact. Coordination intact. Incisions: Intact and without infection. Dressings removed. ] Assessment: [Stable post-op. Improving.] Plan: [1. Continue pain management. 2. Encourage PO nutrition. 3. OT evaluation. 4. PMRU referral. ]
[2016-12-03] MEDS: Dexamethasone TAB* 1 MG PO SCH (08:55)
[2016-12-03] MEDS: Nicotine PATCH 21 MG/24 HR* PATCH TRANSDERM SCH (08:56)
--- NOTE | 2016-12-03 12:30 | DS ---
Discharge Summary 12/03/16 Date of admission: 11/24/16 Date of Discharge: 12/03/16 Discharge Diagnosis 1. Left cerebellar metastatic tumor 2. Metastatic adenocarcinoma of the lung Special Procedures: 1. Left posterior fossa craniectomy for cerebellar tumor resection and left frontal kyle hole for intraventricular drain placement Hospital course: This 71 year old female presented to the [facility] ED on 11/24/16 with complains of bilateral lower extremity weakness, dizziness and inability to ambulate. CT brain obtained and shows large left sided cerebellar mass. She was admitted to the ICU for further work up and monitoring. MRI was obtained that further suggested tumor of the cerebellum. On 11/27/16 she underwent left posterior fossa craniectomy for left cerebellar mass resection and left frontal kyle hole for intraventricular drain placement. Post-operatively, she was transferred back to the ICU for monitoring. She was feeling well with intermittent nausea and continued dizziness with sitting up. On 11/29/16 intraventricular drain was removed without complication. She began increasing activity to sitting up in the chair and ambulating with assistance. On 11/30/16 she was transferred to the short stay surgical unit where she continued to improve post-operatively. She is eating, drinking and voiding without difficulty. She has been working with physical therapy for the past several days. She continues to experience weakness of the lower extremities and truncal ataxia. Incisional left sided head pain is well controlled with oral pain medication. She is discharged on 11/16 to [facility] for further rehabilitation. Discharge medications: 1. Decadron 2mg PO BID Follow up: 1. Neurosurgery follow up in office in 2 weeks; sutures removed at that time. 2. Follow up with Dr. Ch as outpatient for evaluation of metastatic disease.
[2016-12-03 12:40] VITALS: BP 114/60
== END 2016-12-03 13:50 | DRG 25 ==
LOC: ED 17:31 → ICU 22:29 → SSU 11-30 12:42
PROVIDERS: ADMIT Neurological Surgery; ATTEND Neurological Surgery
PROC: 00BC0ZZ Excision of Cerebellum, Open Approach (ICD-10-PCS; principal; 2016-11-24)
PROC: 009600Z Drainage of Cerebral Ventricle with Drainage Device, Open Approach (ICD-10-PCS; 2016-11-24)
PROC: 00U20KZ Supplement Dura Mater with Nonautologous Tissue Substitute, Open Approach (ICD-10-PCS; 2016-11-24)
DX: C71.6 Malignant neoplasm of cerebellum (principal); G93.5 Compression of brain; C34.90 Malignant neoplasm of unspecified part of unspecified bronchus or lung; R40.2412 Glasgow coma scale score 13-15, at arrival to emergency department; Z80.1 Family history of malignant neoplasm of trachea, bronchus and lung; Z80.0 Family history of malignant neoplasm of digestive organs; F41.9 Anxiety disorder, unspecified; F17.210 Nicotine dependence, cigarettes, uncomplicated
CPT/HCPCS: 36415; 70450; 70553; 71020; 71260; 74177; 80048; 80053; 81003; 81015; 82803; 83605; 83735; 84443; 84484; 85025; 85610; 86140; 86850; 86900; 86901; 87641; 88307; 88331; 88341; 88342; 93005; 94760; 99406; A9270-GY; A9579; C1776; J0690; J1100; J1170; J2250; J2270; J2405; J2704; J3010; Q9967

== ENCOUNTER 2016-12-03 12:44 | Inpatient (IN) | payer MEDICARE ==
[2016-12-03] MEDS ORDERED: Senna TAB PO PRN (14:26)
[2016-12-03] MEDS ORDERED: traMADol TAB* 50 MG PO PRN (14:36)
[2016-12-03] MEDS ORDERED: Meclizine TAB* 12.5 MG PO PRN (15:16)
[2016-12-03] MEDS ORDERED: Mouth Piece, Nicotine* 1 EACH CARTRIDGE INH ONE (17:00)
[2016-12-03] MEDS: Nicotine Inhaler* 10 MG AMP INH PRN (18:24)
[2016-12-03] MEDS: Acetaminophen TAB* 325 MG PO PRN (18:52)
[2016-12-03] MEDS ORDERED: diPHENhydraMINE PO* 25 MG ONE (19:33)
[2016-12-03] MEDS: diPHENhydraMINE PO* 25 MG PO PRN (19:35)
[2016-12-03] MEDS: Heparin VIAL(*) 5000 UNITS/ML VIAL (FIVE THOUSAND) SUBCUT SCH (20:02)
--- NOTE | 2016-12-03 20:23 | HP ---
ADMISSION HISTORY AND PHYSICAL: DATE OF ADMISSION: 12/03/16 REASON FOR ADMISSION: Cerebellar tumor resection. HISTORY OF PRESENT ILLNESS: Perla Delgado is a 71-year-old female. She has little in the way of past medical history. She did have bilateral lower extremity weakness over the past several years. More recently, however, the patient noticed a great deal of difficulty in coordinating her lower extremities. On November 23, somewhere around noon, she had difficulty getting out of her car and going back into her house. She was also beginning to have bilateral upper extremity numbness and tingling with headaches, nausea, and vertigo. She called her brother in [place], who advised her to call an ambulance. She came to the hospital acutely on November 24 in the morning. In the emergency room, she had a CAT scan of her brain that showed a left cerebellar mass She was admitted to the hospital. She was started on Decadron and had an MRI of her brain. The MRI of her brain was done November 25 and showed a cystic mass in the left cerebellum. The patient had a metastatic workup following that with a CAT scan of her chest, abdomen, and pelvis. CT of her chest showed bilateral lung masses, most numerous in the right middle lobe. There was also mediastinal adenopathy seen. The patient was taken to the operating room and underwent a left posterior fossa craniectomy with removal of tumor as well as a left frontal ventricular drain placement. Final pathology reports are not yet back. The patient had significant difficulties ambulating as a result of her tumor and surgery. She is felt to have physical therapy and occupational therapy needs. She is now being admitted for inpatient rehab so that she might return to independent living. PAST MEDICAL HISTORY: As noted above. The patient does have a long history of smoking 1 pack a day. CURRENT MEDICATIONS: Include: 1. Decadron 2 mg twice a day. 2. She is also on a nicotine patch. 3. She is on tramadol for pain relief. 4. Ambien as a sleep aid. ALLERGIES: The patient reports no known drug allergies. SOCIAL HISTORY: She is a smoker, pack a day. Does not drink. She lives by herself in a 1-story house. She has a brother visiting from [place]. She has no local family. PHYSICAL EXAMINATION HEENT: Her extraocular movements are intact. Tongue is midline. She does have a wound over her left posterior scalp which is clean. NECK: Supple. LUNGS: Sounded clear to auscultation bilaterally. HEART: Sounds are regular. S1 and S2 are audible. ABDOMEN: Soft and nontender. EXTREMITIES: Showed normal tone. Peripheral pulses were intact. NEUROLOGIC: She was awake, alert, and oriented. Muscle strength appeared to be close to 5/5 in both upper and lower extremities. [id number] coordination was good. FUNCTIONAL EXAM: The patient transfers with contact guard. ASSESSMENT: Left cerebellar mass resection, probable metastatic lung cancer. PLAN: Integrate her into a comprehensive and therapeutic rehab program with the following goals: 1. Physical Therapy will work with the patient, they are going to work on functional transfer training, ambulation training with a walker. 2. Occupational Therapy will see the patient, work on her activities of daily living including toileting and toilet transfers. 3. Heparin for DVT prophylaxis. 4. Adequate analgesia. 5. Her bowels will be regulated. 6. We will use meclizine p.r.n. for vertigo symptoms. 7. Advance directives: She has no healthcare proxy. Her brother is her surrogate decision maker. 8. patient services rep will be closely involved to make sure that any services and equipment that the patient requires are in place prior to discharge. 9. Home with appropriate services. Estimated length of stay is 10 days. [id number]/[facility] #: [id number] [place]
[2016-12-03] MEDS: Dexamethasone TAB* 1 MG PO SCH (20:46)
[2016-12-03] MEDS: Docusate CAP* 100 MG PO SCH (20:47)
[2016-12-03] MEDS: Nicotine Patch Removal NOTE PATCH OFF SCH (20:48)
[2016-12-03] MEDS: Zolpidem TAB* 10 MG PO PRN (22:45)
[2016-12-03] MEDS: Acetaminop/Codeine 30 MG TAB* 1 TAB (300 MG/30 MG) PO PRN (22:45)
[2016-12-04] MEDS: Acetaminop/Codeine 30 MG TAB* 1 TAB (300 MG/30 MG) PO PRN ×4 (08:10→20:15)
[2016-12-04] MEDS: Dexamethasone TAB* 1 MG PO SCH ×2 (08:11→20:14)
[2016-12-04] MEDS: Nicotine PATCH 21 MG/24 HR* PATCH TRANSDERM SCH (08:12)
[2016-12-04] MEDS: Docusate CAP* 100 MG PO SCH ×2 (08:12→19:08)
[2016-12-04] MEDS: Heparin VIAL(*) 5000 UNITS/ML VIAL (FIVE THOUSAND) SUBCUT SCH ×2 (08:12→20:10)
--- NOTE | 2016-12-04 12:45 | PMRUTEAM ---
PMRU: Goals Current Status: Nursing: Current Status Skin Deviations [inside cheek Other and inside lower lip] Skin Deviations [Posterior Bruise Neck] Skin Deviations [Left Hand] Previous Access Point Skin Deviations [Bilateral Other Elbow] Skin Deviations [Jaw] Other Skin Deviations [Head] Incision Skin Deviation Description [ White thin worm like branching lesions and plaques inside cheek and inside lower lip] Skin Deviation Description [ Bruises X2 soft;tender to touch Posterior Neck] Skin Deviation Description [ redness Bilateral Elbow] Skin Deviation Description [ Inside of mouth, skin has tiny white ulcerations Jaw] along right side and bottom of gums. Skin Deviation Description [ Incision X2 timo Head] Physical Therapy: Current Status Bed Mobility Assistance Supervision Transfer Moblility Assistance Supervision Transfer/Bed Mobility None,Rolling Walker Recommended Devices Transfer Mobility Comment Pt. is able to perform a SPT with or without an assistive device cg S x 1 Ambulation Assistance Supervision,Contact Guard Assist Ambulation Assistive Devices Rolling Walker Number of Feet Patient 45' and 65' Ambulated Stairs Assistance Not Tested Stairs Recommended Devices One Rail Number of Stairs 12 Rec Therapy: Current Status Summary of Assessment and New admission - introduce RT services 12/04/16 Clinical Impression Social Work: Current Status Discharge Plan return home with home care svs and family support Potential for Family Training TBD Anticipated Discharge Home Destination Discharge With home care svs and family support Nutrition: Current Status Monitoring new adm. Eating 75% of meals thus far without s/ sx dypshagia. Wt is adequate. Skin is intact. Last BM 12/02. Potential for hyperglycemia w/ Decadron (2mg BID), but no specific intervention anticipated at this time. Initial goals as outlined below. Goals: Physical Therapy: Initial Goals Bed Mobility Assistance Independent,Supervision Transfer Mobility Assistance Independent Transfer/Bed Mobility Rolling Walker Recommended Devices Ambulation Independent Ambulation Recommended Devices Rolling Walker Ambulation Distance 150 Stairs Assistance Independent Stair Recommended Devices One Rail Number of Stairs 12 Physical Therapy: Updated Goals Bed Mobility Assistance Independent Transfer Mobility Assistance Independent Transfer/Bed Mobility Rolling Walker Recommended Devices Ambulation Assistance Independent Ambulation Assistive Devices Rolling Walker Ambulation Distance (ft) 150 Stairs Assistance Independent Stairs Recommended Devices One Rail Number of Stairs 12 Nutrition: Goals Intervention Goals 1. adequate po intake to maintain stable wt, hydration, and lean body mass 2. no s/sx swallowing difficulty or aspiration risk 3. glycemic control within inpatient parameters 4. maintenance of bowel regularity; no c/o constipation (or diarrhea) 5. maintenance of skin integrity; no evidence of breakdown/open areas Social Work: Goals Discharge Plan return home with home care svs and family support Potential for Family Training TBD Anticipated Discharge Home Destination Discharge With home care svs and family support Care Plan: Care Plan Communication-Improve/Maintain Start: 12/04/16 01:39 Freq: QSHIFT Status: Active Target: Activity Type Activity Date Activity User E-Sign Co-Sign Detail Recorded Client Recorded Date Recorded By Document 12/04/16 11:44 [id number] 12/04/16 11:45 [id number] 12/04/16 11:44 Outcome: Communication Outcome/Goals Demonstrate Knowledge and Use of Communication Tools/Devices Demonstrate Ability to Make Needs Known Progression Toward Outcome/Goals Progressing Coping/Psych-Improve/Maintain Start: 12/04/16 11:45 Freq: QSHIFT Status: Active Target: Activity Type Activity Date Activity User E-Sign Co-Sign Detail Recorded Client Recorded Date Recorded By Document 12/04/16 11:45 [id number] 12/04/16 11:46 [id number] 12/04/16 11:45 PMRU Outcome: Coping/Psychosocial Coping Outcome/Goals Verbalization of Acceptance of Rehab Admit Verbalization of Sense of Control Over Health Status Utilization of Appropriate Problem Solving Techniques Willingness to Participate in Treatment Plan and Basic Needs Utilization of Available Support Systems Absence of Destructive Behavior to Self/Others Psychosocial Outcome/Goals Maintain/ Improve Emotional Health Demonstrates Knowledge of Healthy Coping Mechanisms Available Cooperate/ Participate in Plan Other Outcome/Goals pt very tearful Progression Toward Outcome/Goals - Not Progressing Coping Progression Toward Outcome/Goals - Not Progressing Psychosocial Discharge Planning Start: 12/04/16 01:39 Freq: QSHIFT Status: Active Target: Activity Type Activity Date Activity User E-Sign Co-Sign Detail Recorded Client Recorded Date Recorded By Document 12/04/16 11:44 [id number] 12/04/16 11:45 [id number] 12/04/16 11:44 Outcome: Discharge Planning Outcome/Goals Demonstrates Understanding of Discharge Plan Necessary Services Arranged for Post Discharge Care Progression Toward Outcome/Goals Progressing Gastrointestinal-Improve/Maintain Start: 12/04/16 01:39 Freq: QSHIFT Status: Active Target: Activity Type Activity Date Activity User E-Sign Co-Sign Detail Recorded Client Recorded Date Recorded By Document 12/04/16 11:44 [id number] 12/04/16 11:45 [id number] 12/04/16 11:44 Outcome: Gastrointestinal Outcome/Goals Maintain/ Achieve Bowel Regularity in Accordance with Pt's Baseline Remain Free of Emesis Progression Toward Outcome/Goals Progressing Genitourinary-Improve/Maintain Start: 12/04/16 01:39 Freq: QSHIFT Status: Active Target: Activity Type Activity Date Activity User E-Sign Co-Sign Detail Recorded Client Recorded Date Recorded By Document 12/04/16 11:44 [id number] 12/04/16 11:45 [id number] 12/04/16 11:44 Outcome: Genitourinary Outcome/Goals Maintain/ Achieve Urinary Continence Maintain/ Achieve Adequate Urinary Output Remain Free of Hospital- Acquired UTI Progression Toward Outcome/Goals Progressing Mobility- Improve/Maintain Start: 12/03/16 15:02 Freq: QSHIFT Status: Active Target: Activity Type Activity Date Activity User E-Sign Co-Sign Detail Recorded Client Recorded Date Recorded By Document 12/03/16 15:02 [id number] 12/03/16 15:03 [id number] 12/03/16 15:02 PMRU Outcome: Mobility Physical Therapy Evaluation and Yes Treatment Activity OOB with Assistance Yes WBAT Yes NWB No TTWB No Device Yes: rolling walker Assistance Yes: min a Patient to be seen 5x/wk for 60-120 min/ Therex day for: Mobility Training Gait Training Balance Outcome/Goals Maintain/ Achieve Baseline Mobility Status Improve Mobility Status Demonstrates Proper Use of Assistive Devices Free from Complications of Immobility Bed Mobility Yes: independent Transfers Yes: independent Gait x ft 150 ft with rolling walker independent W/C Mobility x ft No Up/Down Stairs Yes: 12 steps with one rail independent With HEP Yes: independent Mobility-Improve/Maintain Start: 12/04/16 01:39 Freq: QSHIFT Status: Active Target: Activity Type Activity Date Activity User E-Sign Co-Sign Detail Recorded Client Recorded Date Recorded By Document 12/04/16 11:44 [id number] 12/04/16 11:45 [id number] 12/04/16 11:44 Outcome: Mobility Outcome/Goals Maintain/ Achieve Baseline Mobility Status Improve Mobility Status Demonstrates Proper Use of Assistive Devices Progression Toward Outcome/Goals Progressing Neurological-Improve/Maintain Start: 12/04/16 01:39 Freq: QSHIFT Status: Active Target: Activity Type Activity Date Activity User E-Sign Co-Sign Detail Recorded Client Recorded Date Recorded By Document 12/04/16 11:44 [id number] 12/04/16 11:45 [id number] 12/04/16 11:44 Outcome: Neurological Outcome/Goals Prevent Avoidable Neurological Decline Demonstrate Knowledge of Prevention/Tx of Neuro Disorders/ Complication Maintain/ Improve Strength/ROM Progression Toward Outcome/Goals Progressing Medicine Note: Length of Stay: 7 days Anticipated Discharge Destination: Home Tentative Discharge Date: 12/11/16 Discharged to: Home
[2016-12-04] MEDS ORDERED: LORazepam TAB(*) 0.5 MG PO PRN (13:18)
[2016-12-04] MEDS: Acetaminophen TAB* 325 MG PO PRN (19:07)
[2016-12-04] MEDS: diPHENhydraMINE PO* 25 MG PO PRN (19:08)
[2016-12-04] MEDS: Nicotine Patch Removal NOTE PATCH OFF SCH (20:47)
[2016-12-05] MEDS: Acetaminop/Codeine 30 MG TAB* 1 TAB (300 MG/30 MG) PO PRN ×6 (00:27→23:50)
[2016-12-05] MEDS: Omeprazole CAP* 20 MG PO SCH (05:10)
[2016-12-05 06:52] LABS: Hematocrit 37 % (35-47); Hemoglobin 12.3 g/dl (12.0-16.0); Mean Corpuscular HGB Conc 33 g/dl (31-36); Mean Corpuscular Hemoglobin 31 pg (27-31); Mean Corpuscular Volume 93 fL (80-97); Mean Platelet Volume 7 um3 (7.4-10.4); Red Blood Count 4.01 10^6/ul (4.0-5.4); Red Cell Distribution Width 14 % (10.5-15); White Blood Count 12.6 10^3/ul (3.5-10.8)
[2016-12-05 07:11] LABS: Albumin 3.6 g/dL (3.2-5.2); BUN/Creatinine Ratio 22.5 (8-20); Calcium 8.6 mg/dL (8.6-10.3); EGFR African American 104.7 (>60); EGFR Non-African American 81.4 (>60); Globulin 2.7 g/dL (2-4); Potassium 4.3 mmol/L (3.5-5.0); Total Bilirubin 0.5 mg/dL (0.2-1.0); Total Protein 6.3 g/dL (6.4-8.9)
[2016-12-05] MEDS: Docusate CAP* 100 MG PO SCH ×2 (09:29→21:31)
[2016-12-05] MEDS: Heparin VIAL(*) 5000 UNITS/ML VIAL (FIVE THOUSAND) SUBCUT SCH ×2 (09:29→21:31)
[2016-12-05] MEDS: Dexamethasone TAB* 1 MG PO SCH ×2 (09:30→21:32)
[2016-12-05] MEDS: Sertraline* 25 MG TAB PO SCH (09:30)
[2016-12-05] MEDS: Nicotine PATCH 21 MG/24 HR* PATCH TRANSDERM SCH (09:31)
[2016-12-05] MEDS: Nicotine Patch Removal NOTE PATCH OFF SCH (21:36)
[2016-12-05] MEDS: diPHENhydraMINE PO* 25 MG PO PRN (23:51)
[2016-12-05] MEDS: Zolpidem TAB* 10 MG PO PRN (23:51)
[2016-12-06] MEDS: Omeprazole CAP* 20 MG PO SCH (05:25)
[2016-12-06] MEDS: Acetaminop/Codeine 30 MG TAB* 1 TAB (300 MG/30 MG) PO PRN ×4 (05:30→23:22)
[2016-12-06] MEDS: Docusate CAP* 100 MG PO SCH ×2 (08:01→21:53)
[2016-12-06] MEDS: Nicotine PATCH 21 MG/24 HR* PATCH TRANSDERM SCH (08:02)
[2016-12-06] MEDS: Heparin VIAL(*) 5000 UNITS/ML VIAL (FIVE THOUSAND) SUBCUT SCH ×2 (08:02→21:53)
[2016-12-06] MEDS: Sertraline* 25 MG TAB PO SCH (08:02)
[2016-12-06] MEDS: Dexamethasone TAB* 1 MG PO SCH ×2 (08:02→21:52)
[2016-12-06] MEDS: Nicotine Inhaler* 10 MG AMP INH PRN (08:08)
[2016-12-06] MEDS: Nicotine Patch Removal NOTE PATCH OFF SCH (21:54)
[2016-12-06] MEDS: diPHENhydraMINE PO* 25 MG PO PRN (23:21)
[2016-12-06] MEDS: Zolpidem TAB* 10 MG PO PRN (23:22)
[2016-12-07] MEDS: Acetaminop/Codeine 30 MG TAB* 1 TAB (300 MG/30 MG) PO PRN ×3 (05:56→21:20)
[2016-12-07] MEDS: Omeprazole CAP* 20 MG PO SCH (05:58)
[2016-12-07] MEDS: Nicotine PATCH 21 MG/24 HR* PATCH TRANSDERM SCH (08:29)
[2016-12-07] MEDS: Docusate CAP* 100 MG PO SCH ×2 (08:29→21:13)
[2016-12-07] MEDS: Dexamethasone TAB* 1 MG PO SCH ×2 (08:29→21:13)
[2016-12-07] MEDS: Heparin VIAL(*) 5000 UNITS/ML VIAL (FIVE THOUSAND) SUBCUT SCH ×2 (08:34→21:17)
[2016-12-07] MEDS: Magnesium Hydroxide LIQ* 30 ML UDC PO PRN (08:35)
[2016-12-07] MEDS: Nicotine Inhaler* 10 MG AMP INH PRN (10:24)
[2016-12-07] MEDS: Nystatin SUSPENSION* 100000 UNITS/ML 5 ML UDC PO SCH (21:12)
[2016-12-07] MEDS: Zolpidem TAB* 10 MG PO PRN (21:14)
[2016-12-07] MEDS: diPHENhydraMINE PO* 25 MG PO PRN (21:14)
[2016-12-07] MEDS: Nicotine Patch Removal NOTE PATCH OFF SCH (21:18)
[2016-12-08] MEDS: Omeprazole CAP* 20 MG PO SCH (05:39)
[2016-12-08] MEDS: Acetaminop/Codeine 30 MG TAB* 1 TAB (300 MG/30 MG) PO PRN ×3 (05:45→23:01)
[2016-12-08] MEDS: Nicotine Inhaler* 10 MG AMP INH PRN ×2 (05:45→20:26)
[2016-12-08] MEDS: Docusate CAP* 100 MG PO SCH ×2 (09:35→20:28)
[2016-12-08] MEDS: Heparin VIAL(*) 5000 UNITS/ML VIAL (FIVE THOUSAND) SUBCUT SCH ×3 (09:35→20:30)
[2016-12-08] MEDS: Dexamethasone TAB* 1 MG PO SCH ×2 (09:35→20:27)
[2016-12-08] MEDS: Nicotine PATCH 21 MG/24 HR* PATCH TRANSDERM SCH (09:36)
[2016-12-08] MEDS: Nystatin SUSPENSION* 100000 UNITS/ML 5 ML UDC PO SCH ×4 (09:36→20:26)
[2016-12-08] MEDS: Nicotine Patch Removal NOTE PATCH OFF SCH (22:22)
[2016-12-08] MEDS: diPHENhydraMINE PO* 25 MG PO PRN (23:01)
[2016-12-08] MEDS: Zolpidem TAB* 10 MG PO PRN (23:01)
[2016-12-09] MEDS: Acetaminophen TAB* 325 MG PO PRN (03:16)
[2016-12-09] MEDS: Omeprazole CAP* 20 MG PO SCH (06:19)
[2016-12-09] MEDS: Acetaminop/Codeine 30 MG TAB* 1 TAB (300 MG/30 MG) PO PRN ×3 (06:38→22:46)
[2016-12-09] MEDS: Nystatin SUSPENSION* 100000 UNITS/ML 5 ML UDC PO SCH ×4 (08:33→20:50)
[2016-12-09] MEDS: Heparin VIAL(*) 5000 UNITS/ML VIAL (FIVE THOUSAND) SUBCUT SCH ×2 (08:33→20:51)
[2016-12-09] MEDS: Dexamethasone TAB* 1 MG PO SCH ×2 (08:33→20:49)
[2016-12-09] MEDS: Docusate CAP* 100 MG PO SCH ×2 (08:33→20:50)
[2016-12-09] MEDS: Nicotine PATCH 21 MG/24 HR* PATCH TRANSDERM SCH (08:40)
[2016-12-09] MEDS: Nicotine Inhaler* 10 MG AMP INH PRN ×2 (14:14→20:50)
[2016-12-09] MEDS: Nicotine Patch Removal NOTE PATCH OFF SCH (20:51)
[2016-12-09] MEDS: diPHENhydraMINE PO* 25 MG PO PRN (22:45)
[2016-12-09] MEDS: Zolpidem TAB* 10 MG PO PRN (22:46)
[2016-12-10] MEDS: Acetaminop/Codeine 30 MG TAB* 1 TAB (300 MG/30 MG) PO PRN ×4 (03:14→23:04)
[2016-12-10] MEDS: Omeprazole CAP* 20 MG PO SCH ×2 (05:39→05:41)
[2016-12-10] MEDS: Dexamethasone TAB* 1 MG PO SCH ×2 (09:05→21:17)
[2016-12-10] MEDS: Docusate CAP* 100 MG PO SCH ×2 (09:05→21:18)
[2016-12-10] MEDS: Nystatin SUSPENSION* 100000 UNITS/ML 5 ML UDC PO SCH ×4 (09:06→21:18)
[2016-12-10] MEDS: Heparin VIAL(*) 5000 UNITS/ML VIAL (FIVE THOUSAND) SUBCUT SCH ×2 (09:06→21:18)
[2016-12-10] MEDS: Nicotine PATCH 21 MG/24 HR* PATCH TRANSDERM SCH (09:27)
[2016-12-10] MEDS ORDERED: Zolpidem TAB* 10 MG PO PRN (16:09)
[2016-12-10] MEDS: Nicotine Patch Removal NOTE PATCH OFF SCH (21:18)
[2016-12-10] MEDS: Nicotine Inhaler* 10 MG AMP INH PRN (21:20)
[2016-12-10] MEDS: diPHENhydraMINE PO* 25 MG PO PRN (23:04)
[2016-12-11 05:30] VITALS: BP 114/57
[2016-12-11] MEDS: Acetaminop/Codeine 30 MG TAB* 1 TAB (300 MG/30 MG) PO PRN (05:33)
[2016-12-11] MEDS: Magnesium Hydroxide LIQ* 30 ML UDC PO PRN (05:34)
[2016-12-11] MEDS: Nicotine Inhaler* 10 MG AMP INH PRN (05:34)
[2016-12-11] MEDS: Omeprazole CAP* 20 MG PO SCH (07:59)
[2016-12-11] MEDS: Docusate CAP* 100 MG PO SCH (09:02)
[2016-12-11] MEDS: Nicotine PATCH 21 MG/24 HR* PATCH TRANSDERM SCH (09:02)
[2016-12-11] MEDS: Dexamethasone TAB* 1 MG PO SCH (09:02)
[2016-12-11] MEDS: Nystatin SUSPENSION* 100000 UNITS/ML 5 ML UDC PO SCH (09:03)
[2016-12-11] MEDS: Heparin VIAL(*) 5000 UNITS/ML VIAL (FIVE THOUSAND) SUBCUT SCH (09:03)
--- NOTE | 2016-12-13 01:10 | DS ---
DISCHARGE SUMMARY: DATE OF ADMISSION: 12/03/16 DATE OF DISCHARGE: 12/11/16 DISCHARGE DIAGNOSES: 1. Metastatic cerebellar tumor resection. 2. Lung mass. 3. Anxiety. 4. Tobacco use disorder. HISTORY OF ILLNESS AND HOSPITAL COURSE: For complete history of the events leading up to her rehab stay, please see the history and physical dictated by me on 12/03/16. While on the rehab unit, the patient was somewhat anxious on admission. She refused to take Zoloft or Ativan, however, when these were offered. The patient was continued on Decadron while on the rehab unit. She developed oral thrush and this was treated with nystatin swish and swallow. The patient's blood work was stable during her time on rehab unit. Her wound healed well. The patient was seen by both Physical and Occupational Therapy and made good gains with both disciplines. With Physical Therapy at the time of admission, the patient required contact guard to transfer. She was able to ambulate with contact guard about 20 feet. With occupational therapy, she was contact guard to min assist for toileting and toilet transfers. By the time of discharge, the patient was independent transfers, independent ambulating 150 feet with a 4-wheeled walker, independent with all of her activities of daily livings. The patient was discharged home on 12/11/16. DISCHARGE DIET: Regular. DISCHARGE MEDICATIONS: Included: 1. Tylenol with Codeine No. 3 one tablet every 4 hours as needed. 2. Decadron 1 mg twice a day. 3. Nicotine inhaler 10 mg every 2 hours as needed. 4. Nicotine patch 21 mg every 24 hours applying at 8 a.m., removing at 2100 for 2 weeks. 5. Nystatin suspension 4 times a day for a week. 6. Omeprazole 20 mg daily for a month. 7. Ambien 10 mg at bedtime as needed. SERVICES AFTER DISCHARGE: Through the [facility]. She will have home nursing, home physical therapy, and home health aide. FOLLOWUP: With Dr. Hong Hunter on 12/21/16. She will also follow up with Dr. Hallie Ch in a week. The aptient would not let us make an appointment with Dr. Ch and said she would make her own appointment. CC: Nadia Coates NP* [id number]/[facility] #: [id number] [facility] CENTERShanthi
== END 2016-12-11 11:15 | disposition home or self-care (01) | DRG 55 ==
LOC: PMRU 13:54
PROVIDERS: ADMIT Physical Medicine & Rehabilitation; ATTEND Physical Medicine & Rehabilitation
PROC: F07Z5ZZ Bed Mobility Treatment (ICD-10-PCS; principal; 2016-12-03)
PROC: F07Z9ZZ Gait Training/Functional Ambulation Treatment (ICD-10-PCS; 2016-12-03)
PROC: F07Z8ZZ Transfer Training Treatment (ICD-10-PCS; 2016-12-03)
PROC: F08Z0ZZ Bathing/Showering Techniques Treatment (ICD-10-PCS; 2016-12-03)
DX: C79.31 Secondary malignant neoplasm of brain (principal); B37.0 Candidal stomatitis; C34.90 Malignant neoplasm of unspecified part of unspecified bronchus or lung; F41.9 Anxiety disorder, unspecified; F17.210 Nicotine dependence, cigarettes, uncomplicated; Z79.899 Other long term (current) drug therapy
CPT/HCPCS: 36415; 80053; 85025; A9270-GY; J1644

== ENCOUNTER 2017-05-21 07:09 | Emergency (ER) | payer MEDICARE ==
[2017-05-21 07:16] VITALS: BP 144/37
--- NOTE | 2017-05-21 08:38 | RAD ---
Indication: Lung carcinoma. CT of the brain was performed without IV contrast. Comparison is made with previous exam dated November 28, 2016. There is an enlarging mass in the left cerebellar hemisphere now measuring up to 4.4 x 4.2 cm previously measuring 2.9 x 2.3 cm. There is mass effect on the fourth ventricle. No evidence of obstructive hydrocephalus is noted. Additional mass is noted in the left frontal lobe which is new measuring 6.1 x 5.2 cm. There is mass effect with midline shift towards the right due to this enlarging mass. The midline is shifted towards the right of approximately 7 mm. Patient is status post craniotomy in the left occipital area. IMPRESSION: Enlarging mass in the left cerebellar hemisphere causing midline shift towards the right of the fourth ventricle. There is a new mass in the left frontal lobe measuring 6.1 x 5.2 cm causing mass effect on the left lateral ventricle with midline shift towards the right of approximately 6.9 mm.
--- NOTE | 2017-05-21 08:42 | RAD ---
Indication: Follow-up lung masses. CT of the chest was performed without IV contrast. Coronal and sagittal reconstructed images were obtained. Increasing size of right paratracheal adenopathy is noted measuring up to 18 mm. Subcarinal adenopathy increasing size measuring up to 28 mm. Right hilar adenopathy is noted measuring approximately 2.8 cm although difficult to delineate. The heart demonstrates no pericardial effusion. There is increasing masses noted in the right upper lobe. Right upper lobe mass measures 14 mm and extends from the right hilum. Right suprahilar mass measures 2.2 x 2.5 cm which is increased since previous exam. Dominant mass in the right middle lobe is increasing in size measuring 4.5 x 4.5 cm previously measuring 4.5 x 3.8 cm. Multiple adjacent masses are noted which are also increasing in size. Right lower lobe mass previously now present is noted measuring 9 mm. Left lower lobe mass is now present measuring 8 mm which was not present previously. Other lower lobe masses and left measures 13 and 12 mm which are also. Mass in the lingula is increased in size measuring 13 mm. The bony structures are grossly unremarkable. No pleural fluid is identified. No adrenal masses are noted. The remainder of the visualized abdominal organs are unremarkable. IMPRESSION: MILD INCREASE IN MEDIASTINAL ADENOPATHY DESCRIBED ABOVE. PROGRESSIVE SIZE OF LUNG MASSES WITH NEW MASSES IN THE RIGHT UPPER LOBE AND LEFT LOWER LOBE WHICH WAS NOT PRESENT PREVIOUSLY. PREVIOUSLY IDENTIFIED MASSES IN THE RIGHT PERIHILAR AND RIGHT MIDDLE LOBE ARE INCREASED IN SIZE.
--- NOTE | 2017-05-21 12:01 | ED ---
Danielle Chaudhari Thomas, scribed for Patricio Mccormack MD on 05/21/17 at 0752 . Altered Mental Status - HPI Summary HPI Summary: The pt is a 71 y/o F with a Hx of metastasized brain CA and accompanied by her son and daughter with worsening AMS over the last few weeks. She does not respond to questions other than an occasional one-word response, nod, or shake of her head. Therefore her family supplies her history. Her family is concerned that she is dehydrated. Pt additionally c/o vomiting (onset today), WREN, coughing , urinary incontinence, slurred speech, some weakness in extremities, and photophobia. Pt denies visual changes, SOB, weight loss, seizures, hunger, and thirst. PMHx: brain CA. PSHx: craniotomy. SHx: current smoker, no alcohol use. FHx: CA. The patient has ceased curative treatment at this point. Per her family members, she has a phobia of needles. - History Of Current Complaint Chief Complaint: EDAltMentalStatus Stated Complaint: AMS Time Seen by Provider: 05/21/17 07:28 Hx Obtained From: Patient, Family/Chief Learning Officer - daughter, son present Onset/Duration: Still Present Timing: Constant, Lasting Weeks - onset over the last few weeks Severity Currently: Moderate Character: Confusion Aggravating Factor(s): Nothing Alleviating Factor(s): Nothing Associated Signs And Symptoms: Positive: Vomiting, Headache, Weakness. Negative : Seizure, Fever Related History: Other: - Hx of metastisized brain cancer - Allergies/Home Medications Allergies/Adverse Reactions: Allergies Allergy/AdvReac Type Severity Reaction Status Date / Time Tramadol Allergy Swelling Verified 12/03/16 22:56 Of Face,Lips,& Throat PMH/Surg Hx/FS Hx/Imm Hx Previously Healthy: No Endocrine/Hematology History: Denies: Hx Diabetes, Hx Thyroid Disease Cardiovascular History: Denies: Hx Hypertension Respiratory History: Denies: Hx Asthma, Hx Chronic Obstructive Pulmonary Disease (COPD) GI History: Denies: Hx Ulcer History: Denies: Hx Dialysis, Hx Renal Disease Musculoskeletal History: Denies: Hx Back Problems Sensory History: Reports: Hx Contacts or Glasses, Hx Vision Problem Denies: Hx Hearing Aid Opthamlomology History: Reports: Hx Contacts or Glasses, Hx Vision Problem Neurological History: Reports: Other Neuro Impairments/Disorders - Eye movements that are typically assoc with migraines, with no migraines Denies: Hx Dementia, Hx Seizures - Cancer History Cancer Type, Location and Year: Brain CA, metastisized - Surgical History Surgery Procedure, Year, and Place: Tonsillectomy at age 5. craniotomy Infectious Disease History: No Infectious Disease History: Denies: Hx Hepatitis, Hx Human Immunodeficiency Virus (HIV), Traveled Outside the [place] in Last 30 Days - Family History Known Family History: Positive: Other - POS: CA - Social History Alcohol Use: None Substance Use Type: Reports: None Hx Tobacco Use: Yes Smoking Status (MU): Heavy Every Day Tobacco Smoker Type: Cigarettes Amount Used/How Often: 1 PPD Length of Time of Smoking/Using Tobacco: 40+ years Have You Smoked in the Last Year: Yes Review of Systems Negative: Fever, Other - NEG: weigt loss Positive: Photophobia. Negative: Other - NEG: visual changes Positive: Cough. Negative: Shortness Of Breath Positive: Vomiting - onset today. Negative: Other - NEG: hunger, thirst Positive: incontinence Neurological: Other - NEG: seizures Positive: Headache, Weakness - in the extremities, Slurred Speech All Other Systems Reviewed And Are Negative: Yes Physical Exam - Summary Physical Exam Summary: The patient answers yes/no questions with one word answers. History is obtained by the family. The patient is well-nourished in no acute distress and in no acute pain. The skin is warm and dry and skin color reflects adequate perfusion. HEENT: ~The head is normocephalic and atraumatic. The patient was uncooperative with an eye exam, although it appears that her pupils are grossly equal. The conjunctivae are clear and without drainage. ~Nares are patent and without drainage. ~Mouth reveals dry mucous membranes and the throat is without erythema and exudate. ~The external ears are intact. Both ears are filled with cerumen. Neck is supple with full range of motion and non-tender. There are no carotid bruits. ~There is no neck vein distension. Respiratory: Chest is non-tender. ~Lungs are clear to auscultation and breath sounds are symmetrical and equal. Cardiovascular: Heart is regular rate and rhythm. ~There is no murmur or rub auscultated. ~~There is no peripheral edema and pulses are symmetrical and equal. Abdomen: The abdomen is soft and non-tender. ~There are normal bowel sounds heard in all four quadrants and there is no organomegaly palpated. Musculoskeletal: There is no back pain noted. ~There is no reproducible spinal pain. Extremities are non-tender with full range of motion. ~There is good capillary refill. ~There is no peripheral edema or calf tenderness elicited. Neurological: Patient is alert and oriented to person, place and time. ~The patient has symmetrical motor strength in all four extremities. ~However, she does not do a leg lift on the right side. Babinskis sign is negative. She does ambulate with assistance in the emergency department with family members. Cranial nerves are grossly intact. Deep tendon reflexes are symmetrical and equal in all four extremities. Psychiatric: The patient has an appropriate affect and does not exhibit any anxiety or depression. She is smiling. Triage Information Reviewed: Yes Vital Signs On Initial Exam: Initial Vitals Temp Pulse Resp BP Pulse Ox 96.8 F 61 16 144/37 93 05/21/17 07:14 05/21/17 07:14 05/21/17 07:14 05/21/17 07:14 05/21/17 07:14 Vital Signs Reviewed: Yes - [place] Coma Scale Coma Scale Total: 11 Diagnostics - Vital Signs Vital Signs Temp Pulse Resp BP Pulse Ox 05/21/17 07:14 96.8 F 61 16 144/37 93 - Laboratory Lab Statement: Any lab studies that have been ordered have been reviewed, and results considered in the medical decision making process. - CT CT Brain noncontrast CT Interpretation: Positive (See Comments) - Enlarging mass in the left cerebellar hemisphere causing midline shift towards the right of the fourth ventricle. There is a new mass in the left frontal lobe measuring 6.1 x 5.2 cm causing mass effect on the left lateral ventricle with midline shift towards the right of approximately 6.9 mm. ED physician has reviewed this report and agrees. CT Interpretation Completed By: Radiologist CT Chest noncontrast CT Interpretation: Positive (See Comments) - MILD INCREASE IN MEDIASTINAL ADENOPATHY DESCRIBED ABOVE. PROGRESSIVE SIZE OF LUNG MASSES WITH NEW MASSES IN THE RIGHT UPPER LOBE AND LEFT LOWER LOBE WHICH WAS NOT PRESENT PREVIOUSLY. PREVIOUSLY IDENTIFIED MASSES IN THE RIGHT PERIHILAR AND RIGHT MIDDLE LOBE ARE INCREASED IN SIZE. ED physician has reviewed this report and agrees. CT Interpretation Completed By: Radiologist Altered Mental Statu Course/Dx - Course Assessment/Plan: The pt is a 71 y/o F with a Hx of metastasized brain CA and accompanied by her son and daughter with worsening AMS over the last few weeks. She does not respond to questions other than an occasional one-word response, nod, or shake of her head. Therefore her family supplies her history. Her family is concerned that she is dehydrated. Pt additionally c/o vomiting (onset today), WREN, coughing, urinary incontinence, slurred speech, some weakness in extremities, and photophobia. Pt denies visual changes, SOB, weight loss, seizures, hunger, and thirst. PMHx: brain CA. PSHx: craniotomy. SHx: current smoker, no alcohol use. FHx: CA. The patient has ceased curative treatment at this point. Per her family members, she has a phobia of needles. The patients son and daughter refuse labwork d/t the patients fear of needles. They also refuse a contrast CT Brain for the same reason. Therefore, we will order a CT Brain noncontract and a CT Chest noncontrast. We called a social work consult. CT brain without contrast shows Enlarging mass in the left cerebellar hemisphere causing midline shift towards the right of the fourth ventricle. There is a new mass in the left frontal lobe measuring 6.1 x 5.2 cm causing mass effect on the left lateral ventricle with midline shift towards the right of approximately 6.9 mm. ED physician has reviewed this report and agrees. CT Chest without contrast shows MILD INCREASE IN MEDIASTINAL ADENOPATHY DESCRIBED ABOVE. PROGRESSIVE SIZE OF LUNG MASSES WITH NEW MASSES IN THE RIGHT UPPER LOBE AND LEFT LOWER LOBE WHICH WAS NOT PRESENT PREVIOUSLY. PREVIOUSLY IDENTIFIED MASSES IN THE RIGHT PERIHILAR AND RIGHT MIDDLE LOBE ARE INCREASED IN SIZE. ED physician has reviewed this report and agrees. I filled out a [facility] form regarding do not intubate. She is diagnosed with metastatic lung cancer. She is discharged home. She is stable. She will follow up with hospice and palliative care. - Diagnoses Differential Diagnosis/HQI/PQRI: Other - metastatic lung cancer, brain mets, ams , pallative care Discharge Diagnoses: Metastatic lung cancer (metastasis from lung to other site) Discharge - Discharge Plan Condition: Stable Disposition: HOME Referrals: Tia Can MD [Primary Care Provider] - 3 Days Additional Instructions: Follow up with palliative care and hospice. The documentation as recorded by the Danielle villafana Thomas accurately reflects the service I personally performed and the decisions made by me, Patricio Mccormack MD.
== END 2017-05-21 10:33 | disposition home or self-care (01) ==
LOC: ED 07:09
DX: C34.90 Malignant neoplasm of unspecified part of unspecified bronchus or lung (principal); R11.10 Vomiting, unspecified; R51 Headache; R53.1 Weakness; H53.149 Visual discomfort, unspecified; F17.210 Nicotine dependence, cigarettes, uncomplicated
CPT/HCPCS: 70450; 71250; 99282